=== PATIENT | male | born 1995 | race Caucasian/White ===

== ENCOUNTER 2021-06-22 16:37 | Emergency (ER) | payer MEDICAID ==
[~2021-06-22] VITALS: Ht 175.3 cm; Wt 122.0 kg
[~2021-06-22 16:37] MED LIST: AMOX500C2 PO
[2021-06-22 16:48] VITALS: BP 132/85
--- NOTE | 2021-06-22 16:59 | ED Back Pain ---
General Chief Complaint: Back Problems Stated Complaint: BACK PAIN Nursing Triage Note: PT TO [facility] BY WHEELCHAIR WITH COMLPAINT OF LOW BACK PAIN. STATES HAS HAD SCIATICA PAIN BEFORE AND COULD NOT GET INTO PRIMARY UNTIL TOMORROW. DENIES LOSS OF BOWEL OR BLADDER Source of Information: Patient Exam Limitations: No Limitations History of Present Illness Date Seen by Provider: Jun 22, 2021 Time Seen by Provider: 16:57 Initial Comments Patient is a 26-year-old male who presents ED with low back pain. This occurred this morning when he went down to grab something in the fridge. Patient felt a sharp pain in his lower back. Rating pain in the left leg. History of similar type pain in the past. No bowel or urine incontinence, saddle paresthesia. Denies any fall or trauma. No fever, drug use. Denies taking thing for pain. Denies of any history of cancer, bone disorders. Pain is described as tight and cramping Allergies and Home Medications Allergies Coded Allergies: No Known Drug Allergies (Verified Allergy, Mild, 02/07/09) Patient Home Medication List Home Medication List Reviewed: Yes Naproxen (Naproxen) 500 Mg Tablet.dr, 500 MG PO BID Prescribed by: HENRRY ALMONTE on 06/22/211731 Naproxen (Naproxen) 500 Mg Tablet.dr, 500 MG PO BID Prescribed by: HENRRY ALMONTE on 06/22/211738 Review of Systems Constitutional: No chills, No diaphoresis, No dizziness, No fever, No malaise EENTM: No blurred vision, No mouth pain, No mouth swelling, No throat pain, No throat swelling Respiratory: No cough, No dyspnea on exertion Cardiovascular: No chest pain Gastrointestinal: No abdominal pain, No diarrhea, No nausea, No vomiting Genitourinary: No decreased output, No discharge Musculoskeletal: back pain, joint pain; No joint swelling; muscle pain, muscle stiffness Skin: No change in color, No change in hair/nails All Other Systems Reviewed Negative Unless Noted: Yes Past Fahkkft-Asewto-Olgzdn Hx Patient Social History Tobacco Use?: No Use of E-Cig and/or Vaping dev: No Substance use?: No Alcohol Use?: No Pt feels they are or have been: No Immunizations Up To Date Tetanus Booster (TDap): More than 5yrs PED Vaccines UTD: Yes Seasonal Allergies Seasonal Allergies: Yes Past Medical History Orthopedic Asthma Reproductive Disorders: No Family Medical History No Pertinent Family Hx Physical Exam Vital Signs Vital Signs - First Documented 06/22/21 16:48 Pulse 95 Resp 16 B/P (MAP) 132/85 (101) Pulse Ox 98 O2 Delivery Room Air Capillary Refill : Less Than 3 Seconds Height, Weight, BMI Height: 5'8" Weight: 267lbs. oz. 121.317164vu; 39.00 BMI Method: General Appearance: No Apparent Distress, WD/WN HEENT: PERRL/EOMI, TMs Normal, Normal ENT Inspection, Pharynx Normal Neck: Full Range of Motion, Normal Inspection Cardiovascular: Regular Rate, Rhythm, No Edema, No Gallop, No JVD Respiratory: Chest Non Tender, Lungs Clear, Normal Breath Sounds, No Accessory Muscle Use Gastrointestinal: Normal Bowel Sounds, No Organomegaly, No Pulsatile Mass Back: Other (Bilateral lumbar paraspinal muscle tenderness. Lumbar midline tenderness. Pain with movement. No swelling, erythema or ecchymosis) Extremity: Normal Capillary Refill, Normal Inspection, Normal Range of Motion, Non Tender Skin: Normal Color, Warm/Dry Progress/Results/Core Measures Results/Orders My Orders Orders - PAUL BREWSTER Ketorolac Injection (Toradol Injection) (06/22/21 17:00) Orphenadrine Inj (Ed Only) (Norflex Inje (06/22/21 17:00) Hydrocodone/Apap 5/325 Tablet (Lortab 5 (06/22/21 17:00) Medications Given in ED Current Medications Medications Dose Ordered Sig/Erick Route Start Time Stop Time Status Last Admin Dose Admin Acetaminophen/ Hydrocodone Bitart 1 ea ONCE ONCE PO 06/22/21 17:00 06/22/21 17:01 DC 06/22/21 17:13 1 EA Ketorolac Tromethamine 60 mg ONCE ONCE IM 06/22/21 17:00 06/22/21 17:01 DC 06/22/21 17:13 60 MG Orphenadrine Citrate 60 mg ONCE ONCE IM 06/22/21 17:00 06/22/21 17:01 DC 06/22/21 17:13 60 MG Vital Signs/I&O 06/22/21 16:48 Pulse 95 Resp 16 B/P (MAP) 132/85 (101) Pulse Ox 98 O2 Delivery Room Air Blood Pressure Mean: 101 Departure Communication (Admissions) Patient presents ED with acute onset of lower back pain after bending down. Left lower leg pain secondary to low back pain. History of sciatica. No urinary symptoms, bowel or urine cons, saddle paresthesia. No neurological red flag findings. Tenderness throughout the lower back. Muscle strain versus flareup of his sciatica. Was given Toradol, Norflex and pain medication with improvement. Will discharge with naproxen. No trauma or fall. No fever, drug use. Return precaution were discussed with patient. Outpatient follow-up PCP in 2 to 3 days for evaluation. Impression Primary Impression: Back pain Disposition: HOME, SELF-CARE Condition: Stable Departure-Patient Inst. Decision time for Depature: 17:32 Referrals: NEW BRUSH MD (PCP/Family) Primary Care Physician Patient Instructions: Back Muscle Strain (DC) Scripts Naproxen (Naproxen) 500 Mg Tablet. 500 MG PO BID, #20 TAB Prov: PAUL BREWSTER 06/22/21 Naproxen (Naproxen) 500 Mg Tablet. 500 MG PO BID, #20 TAB Prov: PAUL BREWSTER 06/22/21 PAUL BREWSTER Jun 22, 2021 16:58
[2021-06-22] MEDS ORDERED: ORPHENADRINE 60 MG/2 ML (NORFLEX) AMP (ED ONLY) IM ONE (17:00)
[2021-06-22] MEDS ORDERED: HYDROcodone/APAP 5 MG/325 MG (LORTAB) TAB PO ONE (17:00)
[2021-06-22] MEDS ORDERED: KETOROLAC 60 MG/2 ML VIAL IM ONE (17:00)
[2021-06-22] MEDS ORDERED: NAPR500T8 PO ×2 (17:32→17:39)
== END 2021-06-22 17:36 | disposition home or self-care (01) ==
LOC: EDUNIT# 16:37 → ER 16:42
DX: M54.50 Low back pain, unspecified (principal); J45.909 Unspecified asthma, uncomplicated
CPT/HCPCS: 99284